=== PATIENT | female | born 1955 | race African-American/Black ===

== ENCOUNTER 2019-11-14 22:03 | Inpatient (IN) | payer MEDICARE, MEDICAID ==
[~2019-11-14] VITALS: Ht 162.6 cm; Wt 68.5 kg
[~2019-11-14 22:03] MED LIST: AMIT25TA9 PO; AMLO5TAB88 PO; ATEN50TA PO; HYDR25TA PO
[2019-11-14] MEDS ORDERED: SODIUM CHLORIDE 0.9% 1,000 ML IV ONE (23:26)
[2019-11-14] MEDS ORDERED: MORPHINE SULFATE 4 MG/ML CPJ (NOT FOR IM USE) IV STA (23:26)
[2019-11-14] MEDS ORDERED: ONDANSETRON HCL 4MG/2ML INJ IV STA (23:26)
[2019-11-14] MEDS ORDERED: PANTOPRAZOLE SODIUM 40 MG/VIAL IV ONE (23:30)
[2019-11-15 00:36] LABS: BASOPHILS % 0.8 % (0.0-2.0); EOSINOPHILS % 1.2 % (0.0-5.0); HEMATOCRIT. 34.1 % (36.0-48.0); HEMOGLOBIN. 11.4 g/dL (12.0-16.0); LYMPHOCYTES % 31.7 % (20.0-50.0); MEAN CORPUSCULAR HEMOGLOBIN 28.9 pg (28.0-32.0); MEAN CORPUSCULAR VOLUME 86.9 fL (81.0-99.0); MEAN PLATELET VOLUME 7.3 fl (7.4-10.4); MONOCYTES % 7.2 % (2.0-8.0); NEUTROPHILS % 59.1 % (40.0-76.0); PLATELET 371 x1000/uL (130-400); RED BLOOD CELL COUNT 3.93 mill/uL (4.2-5.4); RED CELL DISTRIBUTION WIDTH 14.8 % (11.6-14.6)
[2019-11-15 00:48] LABS: CHLORIDE 107 mEq/L (98-107)
[2019-11-15 00:54] LABS: PARTIAL THROMBOPLASTIN TIME 25.2 sec (23.4-31.0); PROTHROMBIN TIME 10.2 sec (9.6-11.0)
[2019-11-15 01:05] LABS: CLARITY URINE CLOUDY (CLEAR); COLOR URINE DARK YELLOW (YELLOW); KETONES URINE TRACE (NEGATIVE); LEUKOCYTE ESTERASE URINE TRACE (NEGATIVE); NITRITE URINE NEGATIVE (NEGATIVE); OCCULT BLOOD URINE TRACE (NEGATIVE); PH URINE 6.5 (4.5-8.0); PROTEIN URINE NEGATIVE (NEGATIVE); SPECIFIC GRAVITY URINE 1.022 (1.005-1.030)
[2019-11-15] MEDS ORDERED: LEVOFLOXACIN 750MG PREMIX 150 ML IV ONE (01:30)
[2019-11-15] MEDS ORDERED: KCL 10MEQ/50ML PREMIX 50 ML IV ONE (01:30)
[2019-11-15] MEDS: MORPHINE SULFATE 2 MG/ML CPJ (NOT FOR IM USE) IV PRN ×4 (06:48→22:18)
[2019-11-15] MEDS ORDERED: ONDANSETRON HCL 4MG/2ML INJ IV PRN (11:45)
[2019-11-15] MEDS ORDERED: NA PHOS,M-B/NA PHOS,DI-BA ENEMA 118ML PR PRN (11:45)
[2019-11-15] MEDS ORDERED: MAGNESIUM/ALUMINUM HYDROXIDE/SIMETHICONE 30ML UDC PO PRN (11:45)
[2019-11-15] MEDS ORDERED: ACETAMINOPHEN 325MG TABLET PO PRN (11:45)
[2019-11-15] MEDS ORDERED: DIPHENHYDRAMINE 50MG/ML VIAL IV PRN (11:45)
[2019-11-15] MEDS ORDERED: ACETAMINOPHEN 650MG/20.3ML UDC GT PRN (11:45)
[2019-11-15] MEDS ORDERED: CLONIDINE 0.1MG TABLET PO PRN (11:45)
[2019-11-15] MEDS: AMLODIPINE 5MG TABLET PO SCH (14:02)
[2019-11-15] MEDS: SODIUM CHLORIDE 0.9% INJ 3ML FLUSH IVF SCH ×2 (14:03→21:16)
[2019-11-15 14:08] LABS: T4 FREE 1.29 ng/dL (0.76-1.46)
[2019-11-15 14:29] LABS: METHADONE URINE SCREEN NEGATIVE (NEGATIVE); OPIATES URINE SCREEN PRESUMTIVE POSITIVE (NEGATIVE)
[2019-11-15 14:31] LABS: CANNABINOID URINE SCREEN NEGATIVE (NEGATIVE)
[2019-11-15 14:32] LABS: *AMPHETAMINES SCREEN URINE NEGATIVE (NEGATIVE); *BARBITURATES SCREEN URINE NEGATIVE (NEGATIVE); *BENZODIAZEPINES SCREEN URINE NEGATIVE (NEGATIVE); *COCAINE SCREEN URINE NEGATIVE (NEGATIVE); PHENCYCLIDINE URINE SCREEN NEGATIVE (NEGATIVE)
[2019-11-15 14:33] LABS: BASOPHILS % 0.7 % (0.0-2.0); EOSINOPHILS % 2.1 % (0.0-5.0); HEMATOCRIT. 31.8 % (36.0-48.0); HEMOGLOBIN. 10.5 g/dL (12.0-16.0); LYMPHOCYTES % 38.6 % (20.0-50.0); MEAN CORPUSCULAR HEMOGLOBIN 28.8 pg (28.0-32.0); MEAN CORPUSCULAR VOLUME 87.4 fL (81.0-99.0); MEAN PLATELET VOLUME 7.1 fl (7.4-10.4); MONOCYTES % 9.6 % (2.0-8.0); PLATELET 312 x1000/uL (130-400); RED BLOOD CELL COUNT 3.64 mill/uL (4.2-5.4); RED CELL DISTRIBUTION WIDTH 14.9 % (11.6-14.6)
[2019-11-15 14:41] LABS: CHLORIDE 109 mEq/L (98-107)
[2019-11-15 14:49] LABS: CREATINE KINASE 47 IU/L (26-192)
[2019-11-15 14:50] LABS: CREATINE KINASE MB FRACTION < 1.0 ng/mL (0.5-3.6)
[2019-11-15 16:55] VITALS: BP 152/92
[2019-11-15] MEDS: ENOXAPARIN 40MG/0.4ML SYR SUBCUT SCH (17:00)
[2019-11-15] MEDS ORDERED: SORBITOL 70% SOLN 30ML PO NR ×2 (17:15→21:00)
[2019-11-15 20:49] VITALS: BP 151/95
[2019-11-15] MEDS: SORBITOL 70% SOLN 30ML PO NR ×2 (21:14→21:30)
[2019-11-15] MEDS: FAMOTIDINE 20MG TABLET PO SCH (21:14)
[2019-11-15] MEDS ORDERED: HYDROCHLOROTHIAZIDE 25MG TABLET PO SCH (22:00)
[2019-11-15 22:18] VITALS: BP 151/107
[2019-11-15 23:19] LABS: CREATINE KINASE 50 IU/L (26-192)
[2019-11-15 23:20] LABS: CREATINE KINASE MB FRACTION < 1.0 ng/mL (0.5-3.6)
[2019-11-16] VITALS: BP 160/90
[2019-11-16] MEDS: HYDROCHLOROTHIAZIDE 12.5MG CAPSULE PO SCH ×2 (00:04→08:49)
[2019-11-16] MEDS: AMLODIPINE 10MG TABLET PO SCH ×2 (00:04→08:49)
[2019-11-16] MEDS: ATENOLOL 25MG TABLET PO SCH ×2 (00:04→08:50)
[2019-11-16] MEDS: MORPHINE SULFATE 2 MG/ML CPJ (NOT FOR IM USE) IV PRN ×2 (02:57→12:04)
[2019-11-16 04:00] VITALS: BP 143/88
[2019-11-16 05:02] LABS: BASOPHILS % 1.2 % (0.0-2.0); EOSINOPHILS % 0.7 % (0.0-5.0); HEMATOCRIT. 32.5 % (36.0-48.0); HEMOGLOBIN. 10.9 g/dL (12.0-16.0); LYMPHOCYTES % 22.8 % (20.0-50.0); MEAN CORPUSCULAR VOLUME 86.7 fL (81.0-99.0); MEAN PLATELET VOLUME 7.3 fl (7.4-10.4); MONOCYTES % 6.2 % (2.0-8.0); NEUTROPHILS % 69.1 % (40.0-76.0); PLATELET 356 x1000/uL (130-400); RED BLOOD CELL COUNT 3.75 mill/uL (4.2-5.4); RED CELL DISTRIBUTION WIDTH 14.8 % (11.6-14.6)
[2019-11-16 05:20] LABS: CHLORIDE 107 mEq/L (98-107)
[2019-11-16 05:30] LABS: LDL CHOLESTEROL 59 mg/dL (5-100)
[2019-11-16 05:32] LABS: HDL CHOLESTEROL 40 mg/dL (40-59)
[2019-11-16] MEDS: SODIUM CHLORIDE 0.9% INJ 3ML FLUSH IVF SCH ×2 (06:42→14:00)
[2019-11-16] MEDS ORDERED: SORBITOL 70% SOLN 30ML PO NR (07:00)
[2019-11-16 08:00] VITALS: BP 133/86
[2019-11-16] MEDS: FAMOTIDINE 20MG TABLET PO SCH (08:50)
[2019-11-16] MEDS: AMLODIPINE 5MG TABLET PO SCH (08:50)
[2019-11-16] MEDS ORDERED: BACTERIOSTATIC SODIUM CHLORIDE 0.9% 30ML VIAL IJ ONE (11:26)
[2019-11-16 12:01] VITALS: BP 120/79
[2019-11-16] MEDS ORDERED: MIDAZOLAM HCL 5 MG/5 ML VIAL ONE (12:33)
[2019-11-16] MEDS ORDERED: FENTANYL CITRATE/PF 50MCG/ML 2ML VIAL ONE (12:34)
[2019-11-16] MEDS ORDERED: MIDAZOLAM HCL 2 MG/2 ML VIAL IV PRN (13:01)
[2019-11-16] MEDS ORDERED: FENTANYL CITRATE/PF 50MCG/ML 2ML VIAL IV PRN (13:02)
[2019-11-16] MEDS ORDERED: LEVO500T2 MT (13:12)
[2019-11-16] MEDS ORDERED: LEVOFLOXACIN 500MG PREMIX 100 ML IV SCH (14:00)
[2019-11-16 14:21] VITALS: BP_SYST 120; BP_SYST 132; BP_DIAS 79; BP_DIAS 87
[2019-11-16 16:00] VITALS: BP 132/87
[2019-11-16] MEDS: ENOXAPARIN 40MG/0.4ML SYR SUBCUT SCH (17:00)
[2019-11-16] MEDS ORDERED: AMITRIPTYLINE 25MG TABLET PO SCH (21:00)
== END 2019-11-16 20:25 | disposition home or self-care (01) | DRG 392 ==
LOC: ER 22:03 → 6WST 11-15 02:23 → ENRESERV 11-15 15:50
PROVIDERS: ADMIT Family Medicine; ATTEND Family Medicine
PROC: 0DBN8ZX Excision of Sigmoid Colon, Via Natural or Artificial Opening Endoscopic, Diagnostic (ICD-10-PCS; principal; 2019-11-16)
PROC: 0DBL8ZX Excision of Transverse Colon, Via Natural or Artificial Opening Endoscopic, Diagnostic (ICD-10-PCS; 2019-11-16)
DX: K57.30 Diverticulosis of large intestine without perforation or abscess without bleeding (principal); D64.9 Anemia, unspecified; I10 Essential (primary) hypertension; E78.5 Hyperlipidemia, unspecified; E87.6 Hypokalemia; I25.10 Atherosclerotic heart disease of native coronary artery without angina pectoris; J45.909 Unspecified asthma, uncomplicated; K63.5 Polyp of colon; K64.8 Other hemorrhoids; Z82.49 Family history of ischemic heart disease and other diseases of the circulatory system; Z86.73 Personal history of transient ischemic attack (TIA), and cerebral infarction without residual deficits; Z87.19 Personal history of other diseases of the digestive system; Z88.0 Allergy status to penicillin; Z88.8 Allergy status to other drugs, medicaments and biological substances; Z98.51 Tubal ligation status; I25.2 Old myocardial infarction; Z79.899 Other long term (current) drug therapy; Z80.9 Family history of malignant neoplasm, unspecified
CPT/HCPCS: 36415; 71045; 74176; 80053; 80061; 80305; 81003; 82270; 82550; 82553; 83036; 83880; 84439; 84443; 84484; 85025; 85379; 86850; 86900; 87077; 87186; 88305; 93005; 93970; 99152; 99285; C9113; J1956; J2250; J2270; J2405; J3010; J3480; J3490; J7030; G0500